=== PATIENT | female | born 1950 | race Caucasian/White ===

== ENCOUNTER 2017-08-26 07:21 | Day surgery (SDC) | payer MEDICARE, MEDICAID ==
[~2017-08-26 07:21] MED LIST: ALENDRONATE70 MG PO; ASPIRIN325 MG PO; BAYER ASPIRIN325 MG PO; BENADRYL 25MG C25 MG PO; CARAFATE1 GM PO; COREG25 MG PO; COREG6.25 MG PO; FUROSEMIDE40 MG PO; GABAPENTIN300 M2 PO; GLIPIZIDE ER2.5 MG PO; IMDUR30 MG PO; ISOSORB MONO30 MG PO; KEFLEX250 MG PO; LOPID600 MG PO; MELOXICAM7.5 MG PO; METFORMIN500 M1 PO; METOPROLOL SUCC25 MG PO; NITROSTAT0.4 MG SL; PRAVASTATIN SOD20 MG PO; PRILOSEC40 MG PO; RANITIDINE300 MG PO; SPIRONOLACT25 MG PO; SULINDAC200 MG PO; TIZANIDINE HCL4 MG PO; TIZANIDINE4 MG PO; TURMERI1 PO; VERAPAMIL HCL240 M2 PO; VITAMIN E400 UNIT PO; ZESTRIL/PRINIV2.5 MG PO; [UNRECOGNIZED DRUG - OTHER] PO
[2017-08-26 10:21] VITALS: BP 105/68
[2017-08-26] MEDS ORDERED: DOXYCYCL HYC100 MG PO (10:38)
[2017-08-26] MEDS ORDERED: MOTRIN800 MG PO (10:38)
== END 2017-08-26 10:43 | disposition home or self-care (01) ==
LOC: ORM 07:21
PROVIDERS: ATTEND Surgery
PROC: 0JBF0ZZ Excision of Left Upper Arm Subcutaneous Tissue and Fascia, Open Approach (ICD-10-PCS; principal; 2017-08-26)
DX: M79.89 Other specified soft tissue disorders (principal); Z85.3 Personal history of malignant neoplasm of breast

== ENCOUNTER → 2018-06-02 | Outpatient (REF) | payer MEDICARE, MEDICAID ==
[~2018-06-02] MED LIST changes: +ALPRAZOLAM0.5 MG PO; +ASPIRIN81 MG PO; +DOXYCYCL HYC100 MG PO; +MOTRIN800 MG PO
== END | disposition home or self-care (01) ==
LOC: CT 14:32
PROVIDERS: ATTEND Podiatrist Foot & Ankle Surgery
DX: M13.872 Other specified arthritis, left ankle and foot (principal); S92.522D Displaced fracture of middle phalanx of left lesser toe(s), subsequent encounter for fracture with routine healing

== ENCOUNTER → 2018-06-07 | Outpatient (REF) | payer MEDICARE, MEDICAID ==
[2018-06-07 13:10] LABS: URINE BILIRUBIN - DIPSTICK NEGATIVE (NEGATIVE); URINE BLOOD DIPSTICK NEGATIVE (NEGATIVE); URINE COLOR YELLOW; URINE GLUCOSE - DIPSTICK NEGATIVE (NEGATIVE); URINE KETONE NEGATIVE (NEGATIVE); URINE LEUK ESTERASE SMALL (Negative); URINE NITRITE - DIPSTICK POSITIVE (Negative); URINE PH 5.5 (4.5-8.0); URINE PROTEIN - DIPSTICK NEGATIVE (NEG-TRACE); URINE SPECIFIC GRAVITY 1.015; URINE UROBILINOGEN - DIPSTICK 0.2 E.U./dL (0.2)
[2018-06-07 13:13] LABS: HEMATOCRIT 43.5 % (37.0-47.0); HEMOGLOBIN 14.4 g/dl (12.0-16.0); IMMATURE GRANULOCYTES 0.2 % (0.0-5.0); MEAN CELL VOLUME 92.8 fL CALC (80.0-100.0); MEAN CORPUSCULAR HGB 30.7 pG CALC (26.0-32.0); MEAN CORPUSCULAR HGB CONC 33.1 g/L CALC (32.0-36.0); NEUT# 2.57 thou/uL (2.00-7.15); RED BLOOD COUNT 4.69 mill/uL (4.20-5.60); RED CELL DISTRI WIDTH 12.8 % (11.5-15.5)
[2018-06-07 13:15] LABS: URINE CLARITY HAZY
[2018-06-07 13:17] LABS: URINE BACTERIA MANY hpf; URINE EPITHELIAL CELLS MODERATE EPI/hpf (0-FEW)
[2018-06-07 13:22] LABS: CREATININE 1.2 mg/dL (0.5-1.0); POTASSIUM 4.1 mmol/l (3.5-5.1)
== END | disposition home or self-care (01) ==
LOC: LAB 11:19
PROVIDERS: ATTEND Internal Medicine Nephrology
DX: N18.3 Chronic kidney disease, stage 3 (moderate) (principal); D63.1 Anemia in chronic kidney disease; N25.81 Secondary hyperparathyroidism of renal origin; N39.0 Urinary tract infection, site not specified; B95.7 Other staphylococcus as the cause of diseases classified elsewhere

== ENCOUNTER 2018-06-09 13:43 | Observation (INO) | payer MEDICARE, MEDICAID ==
[~2018-06-09] VITALS: Ht 175.3 cm; Wt 72.0 kg
[~2018-06-09 13:43] MED LIST changes: -ALPRAZOLAM0.5 MG PO; -ASPIRIN81 MG PO
[2018-06-09 15:33] LABS: HEMATOCRIT 43.5 % (37.0-47.0); HEMOGLOBIN 14.3 g/dl (12.0-16.0); IMMATURE GRANULOCYTES 0.5 % (0.0-5.0); MEAN CELL VOLUME 92.9 fL CALC (80.0-100.0); MEAN CORPUSCULAR HGB 30.6 pG CALC (26.0-32.0); MEAN CORPUSCULAR HGB CONC 32.9 g/L CALC (32.0-36.0); NEUT# 4.91 thou/uL (2.00-7.15); RED BLOOD COUNT 4.68 mill/uL (4.20-5.60); RED CELL DISTRI WIDTH 12.5 % (11.5-15.5)
[2018-06-09 15:42] LABS: URINE BILIRUBIN - DIPSTICK NEGATIVE (NEGATIVE); URINE BLOOD DIPSTICK NEGATIVE (NEGATIVE); URINE COLOR YELLOW; URINE GLUCOSE - DIPSTICK NEGATIVE (NEGATIVE); URINE KETONE NEGATIVE (NEGATIVE); URINE LEUK ESTERASE TRACE (NEGATIVE); URINE NITRITE - DIPSTICK NEGATIVE (Negative); URINE PROTEIN - DIPSTICK NEGATIVE (NEG-TRACE); URINE UROBILINOGEN - DIPSTICK 0.2 E.U./dL (0.2)
[2018-06-09 16:00] LABS: CREATININE 1.2 mg/dL (0.5-1.0); POTASSIUM 4.9 mmol/l (3.5-5.1)
[2018-06-09] MEDS ORDERED: ALPRAZOLAM0.5 MG PO (16:43)
[2018-06-09] MEDS ORDERED: ASPIRIN81 MG PO (16:45)
[2018-06-09 19:04] VITALS: BP 99/58
[2018-06-10 00:12] VITALS: BP 109/65
[2018-06-10 04:10] VITALS: BP 94/60
[2018-06-10 05:46] LABS: HEMATOCRIT 38.6 % (37.0-47.0); HEMOGLOBIN 12.9 g/dl (12.0-16.0); IMMATURE GRANULOCYTES 0.8 % (0.0-5.0); MEAN CORPUSCULAR HGB 31.1 pG CALC (26.0-32.0); MEAN CORPUSCULAR HGB CONC 33.4 g/L CALC (32.0-36.0); PLATELET COUNT 267 thou/uL (130-400); RED BLOOD COUNT 4.15 mill/uL (4.20-5.60); RED CELL DISTRI WIDTH 12.5 % (11.5-15.5)
[2018-06-10 06:09] LABS: MANUAL DIFFERENTIAL YES
[2018-06-10 06:14] LABS: ALBUMIN 3.5 g/dL (3.2-5.0); BILIRUBIN, TOTAL 0.4 mg/dL (0.0-1.4); CREATININE 1.3 mg/dL (0.5-1.0); MAGNESIUM 1.8 mg/dL (1.6-2.3); TOTAL PROTEIN 5.7 g/dL (6.3-8.2)
[2018-06-10 08:44] VITALS: BP 115/60
== END 2018-06-10 18:05 | disposition home or self-care (01) ==
LOC: ED 13:43 → ED-I 16:40 → ED 16:49 → MS2 16:50
PROVIDERS: Family Medicine; ADMIT Internal Medicine Nephrology; ATTEND Internal Medicine Nephrology
DX: R20.2 Paresthesia of skin (principal); R53.1 Weakness; R51 Headache; I25.10 Atherosclerotic heart disease of native coronary artery without angina pectoris; J44.9 Chronic obstructive pulmonary disease, unspecified; E78.5 Hyperlipidemia, unspecified; K21.9 Gastro-esophageal reflux disease without esophagitis; M51.27 Other intervertebral disc displacement, lumbosacral region; E04.2 Nontoxic multinodular goiter; E11.22 Type 2 diabetes mellitus with diabetic chronic kidney disease; I12.9 Hypertensive chronic kidney disease with stage 1 through stage 4 chronic kidney disease, or unspecified chronic kidney disease; N18.3 Chronic kidney disease, stage 3 (moderate); T78.40XA Allergy, unspecified, initial encounter; M19.90 Unspecified osteoarthritis, unspecified site; M81.0 Age-related osteoporosis without current pathological fracture; Z86.73 Personal history of transient ischemic attack (TIA), and cerebral infarction without residual deficits
CPT/HCPCS: G0378

== ENCOUNTER 2018-11-24 07:56 | Day surgery (SDC) | payer MEDICARE, MEDICAID ==
[~2018-11-24] VITALS: Ht 175.3 cm; Wt 76.2 kg
[~2018-11-24 07:56] MED LIST changes: +ALPRAZOLAM0.5 MG PO; +ASPIRIN81 MG PO; +CALCIUM PO; +E400400 UNIT PO; +FENOFIBRATE145 MG PO; +FISH OIL1000 M2 PO; +TIZANIDINE HCL4 M1 PO; +TOPROL XL25 M1 PO; +TURMERIC500 MG PO; +VITD PO
[2018-11-24 10:38] VITALS: BP 113/56
== END 2018-11-24 10:50 | disposition home or self-care (01) ==
LOC: ENDO 07:56
PROVIDERS: ATTEND Surgery
PROC: 0DBM8ZX Excision of Descending Colon, Via Natural or Artificial Opening Endoscopic, Diagnostic (ICD-10-PCS; principal; 2018-11-24)
PROC: 0DBE8ZX Excision of Large Intestine, Via Natural or Artificial Opening Endoscopic, Diagnostic (ICD-10-PCS; 2018-11-24)
PROC: 0DBL8ZX Excision of Transverse Colon, Via Natural or Artificial Opening Endoscopic, Diagnostic (ICD-10-PCS; 2018-11-24)
PROC: 0DB78ZX Excision of Stomach, Pylorus, Via Natural or Artificial Opening Endoscopic, Diagnostic (ICD-10-PCS; 2018-11-24)
PROC: 0DB48ZX Excision of Esophagogastric Junction, Via Natural or Artificial Opening Endoscopic, Diagnostic (ICD-10-PCS; 2018-11-24)
DX: R19.7 Diarrhea, unspecified (principal); K63.5 Polyp of colon; D12.3 Benign neoplasm of transverse colon; D12.2 Benign neoplasm of ascending colon; K44.9 Diaphragmatic hernia without obstruction or gangrene; K22.70 Barrett's esophagus without dysplasia; K29.70 Gastritis, unspecified, without bleeding; K21.0 Gastro-esophageal reflux disease with esophagitis; Z86.010 Personal history of colon polyps

== ENCOUNTER 2021-04-21 20:54 | Emergency (ER) | payer MEDICARE, MEDICAID ==
[~2021-04-21] VITALS: Ht 172.7 cm; Wt 75.0 kg
[~2021-04-21 20:54] MED LIST changes: +ALBUTERO1 IN; +ALENDRONATE SOD70 MG PO; +ALPRAZOLAM ER0.5 MG PO; +BENADRYL25 M1 PO; +BUMETANIDE1 MG PO; +DIPHEN/ATROP2.5 M1 PO; +LYRICA150 MG PO; +METFORMIN HCL500 M1 PO; +VITAMIN C500 M5 PO; +VITAMIN D325 MCG PO
[2021-04-21 22:00] LABS: HEMATOCRIT 41.9 % (37.0-47.0); HEMOGLOBIN 13.3 g/dl (12.0-16.0); IMMATURE GRANULOCYTES 0.1 % (0.0-5.0); MEAN CELL VOLUME 93.1 fL CALC (80.0-100.0); MEAN CORPUSCULAR HGB 29.6 pG CALC (26.0-32.0); MEAN CORPUSCULAR HGB CONC 31.7 g/dL CAL (32.0-36.0); NEUT# 5.36 thou/uL (2.00-7.15); RED BLOOD COUNT 4.5 mill/uL (4.20-5.60); RED CELL DISTRI WIDTH 13.4 % (11.5-15.5)
[2021-04-21 22:19] LABS: ALBUMIN 3.9 g/dL (3.2-5.0); ANION GAP 12 (6-22 (CALC)); BILIRUBIN, TOTAL 0.4 mg/dL (0.0-1.4); BUN 16 mg/dL (8-23); BUN/CREATININE RATIO 15 (12-20 (CALC)); CARBON DIOXIDE 28 mmol/l (22-30); CHLORIDE 103 mmol/l (95-108); CREATININE 1.1 mg/dL (0.5-1.0); GFR 49 ML/MIN (>=60 (CALC)); GFR FOR AFR.AMER. 59 ML/MIN (>=60 (CALC)); POTASSIUM 4.6 mmol/l (3.5-5.1); SGOT/AST 27 u/l (9-36); SODIUM 139 mmol/l (137-146)
[2021-04-21 22:23] LABS: ALKALINE PHOSPHATASE 88 u/l (38-126)
[2021-04-21 22:31] LABS: MYOGLOBIN 47 ng/mL (0 - 62)
[2021-04-22] MEDS ORDERED: PERCOCET 10/31 COMBO PO (00:13)
[2021-04-22] MEDS ORDERED: ZITHROMAX250 MG PO (00:13)
[2021-04-22 01:08] VITALS: BP 126/65
== END 2021-04-22 02:14 | disposition home or self-care (01) ==
LOC: ED 20:54
PROVIDERS: Emergency Medicine
DX: S20.219A Contusion of unspecified front wall of thorax, initial encounter (principal); J18.9 Pneumonia, unspecified organism; J44.0 Chronic obstructive pulmonary disease with (acute) lower respiratory infection; E11.9 Type 2 diabetes mellitus without complications; I50.9 Heart failure, unspecified; W18.39XA Other fall on same level, initial encounter; Y92.002 Bathroom of unspecified non-institutional (private) residence as the place of occurrence of the external cause; Z85.42 Personal history of malignant neoplasm of other parts of uterus; Z86.73 Personal history of transient ischemic attack (TIA), and cerebral infarction without residual deficits
CPT/HCPCS: Q9967

== ENCOUNTER 2022-07-16 20:02 | Emergency (ER) | payer MEDICARE, MEDICAID ==
[2022-07-16] VITALS (7 sets, daily range): BP systolic 102–132; BP diastolic 54–83
[~2022-07-16] VITALS: Ht 172.7 cm; Wt 64.0 kg
[~2022-07-16 20:02] MED LIST changes: +PERCOCET 10/31 COMBO PO; +ZITHROMAX250 MG PO
== END 2022-07-16 22:51 | disposition home or self-care (01) ==
LOC: ED 20:02
DX: S20.211A Contusion of right front wall of thorax, initial encounter (principal); T14.8XXA Other injury of unspecified body region, initial encounter; E11.9 Type 2 diabetes mellitus without complications; I50.9 Heart failure, unspecified; J44.9 Chronic obstructive pulmonary disease, unspecified; W19.XXXA Unspecified fall, initial encounter; Y92.009 Unspecified place in unspecified non-institutional (private) residence as the place of occurrence of the external cause; Z85.42 Personal history of malignant neoplasm of other parts of uterus; Z86.73 Personal history of transient ischemic attack (TIA), and cerebral infarction without residual deficits